=== PATIENT | female | born 1990 | race Hispanic/Latino ===

== ENCOUNTER 2017-01-19 21:47 | Emergency (ER) | payer OTHER ==
[2017-01-19 21:52] VITALS: BP 136/89
[2017-01-19] MEDS ORDERED: Sulfamethoxazole/Trimethoprim 800-160 MG Tab PO ONE (22:07)
[2017-01-19] MEDS ORDERED: Phenazopyridine 95 MG Tab PO ONE (22:07)
--- NOTE | 2017-01-19 22:12 | EDM.PDOC ---
ED HPI GENERAL MEDICAL PROBLEM - General Chief Complaint: Genitourinary Problem Stated Complaint: UTI [id number] Time Seen by Provider: 01/19/17 22:09 Source of Information: Reports: Patient History Limitations: Reports: No Limitations - History of Present Illness INITIAL COMMENTS - FREE TEXT/NARRATIVE: 1 week h/o dysuria, urgency, bladder discomfort. Bladder Pain Score (Numeric/FACES): 8 - Related Data Allergies Allergy/AdvReac Type Severity Reaction Status Date / Time aspirin Allergy Swelling Verified 01/19/17 21:52 tide Allergy Itching Uncoded 01/19/17 21:52 Home Meds: Home Meds Ibuprofen [Advil] 800 mg PO DAILY 01/19/17 [History] Past Medical History Genitourinary History: Reports: UTI, Recurrent Social & Family History - Tobacco Use Smoking Status *Q: Current Every Day Smoker Years of Tobacco use: 10 Packs/Tins Daily: 0.3 Second Hand Smoke Exposure: Yes - Recreational Drug Use Recreational Drug Use: No ED ROS GENERAL - Review of Systems Review Of Systems: ROS reveals no pertinent complaints other than HPI. ED EXAM, RENAL/ - Physical Exam Exam: See Below Exam Limited By: No Limitations General Appearance: Alert, WD/WN, Mild Distress, Other ([place]) Ears: Hearing Grossly Normal Throat/Mouth: Normal Voice, No Airway Compromise Head: Atraumatic Neck: Non-Tender, Full Range of Motion Respiratory/Chest: No Respiratory Distress Cardiovascular: Regular Rate, Rhythm GI/Abdominal: Soft, Tender, Other (suprapubic). No: Distended, Guarding, Rigid , Rebound Back Exam: No: CVA Tenderness (L), CVA Tenderness (R) Neurological: Alert, Oriented, Normal Cognition, Normal Gait, No Motor/Sensory Deficits Psychiatric: Normal Affect, Normal Mood Skin Exam: Warm, Dry Lymphatic: No Adenopathy Course - Vital Signs Last Recorded V/S: Last Vital Signs Temp 36.4 C 01/19/17 21:49 Pulse 78 01/19/17 21:49 Resp 18 01/19/17 21:49 BP 136/89 01/19/17 21:49 Pulse Ox 96 01/19/17 21:49 - Orders/Labs/Meds Orders: Active Orders 24 hr Category Date Time Status UA W/MICROSCOPIC [URIN] Stat Lab 01/19/17 21:56 Results Labs: Laboratory Tests 01/19/17 Range/Units 21:56 Urine Color [place] (YELLOW) Urine Appearance Slightly cloudy (CLEAR) Urine pH 6.0 (5.0-9.0) Ur Specific [place] 1.010 (1.005-1.030) Urine Protein >=300 H (NEGATIVE) Urine Glucose (UA) 250 H (NEGATIVE) Urine Ketones Trace H (NEGATIVE) Urine Occult Blood Small H (NEGATIVE) Urine Nitrite Positive H (NEGATIVE) Urine Bilirubin Small H (NEGATIVE) Urine Urobilinogen >=8.0 H (0.2-1.0) mg/dL Ur Leukocyte Esterase Large H (NEGATIVE) Meds: Medications Discontinued Medications Generic Name Dose Route Start Last Admin Trade Name Freq PRN Reason Stop Dose Admin Phenazopyridine HCl 95 mg 01/19/17 22:07 Urinary Pain Relief PO 01/19/17 22:08 ONETIME ONE Trimethoprim/Sulfamethoxazole 1 tab 01/19/17 22:07 Septra Ds PO 01/19/17 22:08 ONETIME ONE Departure - Departure Time of Disposition: 22:11 Disposition: Home, Self-Care 01 Condition: Good Clinical Impression: UTI, Urinary tract infectious disease - Discharge Information Instructions: Urinary Tract Infection, Adult, [id number] Forms: ED Department Discharge Additional Instructions: 1) rest 2) drink lots of liquids 3) follow up at clinic or recheck as needed rx given; bactrim DS bid x20 pyridium 100mg tid prn x 12 - My Orders Last 24 Hours: My Active Orders 01/19/17 21:56 UA W/MICROSCOPIC [URIN] Stat - Assessment/Plan Last 24 Hours: My Active Orders 01/19/17 21:56 UA W/MICROSCOPIC [URIN] Stat
== END 2017-01-19 22:19 | disposition home or self-care (01) ==
LOC: DL.ED 21:47
DX: N39.0 Urinary tract infection, site not specified (principal); F17.210 Nicotine dependence, cigarettes, uncomplicated; Z88.6 Allergy status to analgesic agent; Z79.1 Long term (current) use of non-steroidal anti-inflammatories (NSAID)
CPT/HCPCS: 81001; 99283; A9270

== ENCOUNTER 2017-05-05 14:01 | Emergency (ER) | payer MEDICAID, OTHER ==
[2017-05-05 14:37] VITALS: BP 126/80
--- NOTE | 2017-05-05 15:02 | EDM.PDOC ---
ED HPI GENERAL MEDICAL PROBLEM - General Chief Complaint: ENT Problem Stated Complaint: [id number] PINK EYE Time Seen by Provider: 05/05/17 14:58 Source of Information: Reports: Patient History Limitations: Reports: No Limitations - History of Present Illness INITIAL COMMENTS - FREE TEXT/NARRATIVE: 26 yo [place] Female c/o right eye irritation w/ matting since yesterday. No Trauma Onset Date: 05/04/17 Onset Time: 12:00 Duration: Day(s): Location: Reports: Face Severity: Moderate Improves with: Reports: None Worsens with: Reports: None Context: Reports: Activity Associated Symptoms: Reports: No Other Symptoms Right Eye Pain Score (Numeric/FACES): 3 - Related Data Allergies Allergy/AdvReac Type Severity Reaction Status Date / Time aspirin Allergy Swelling Verified 01/19/17 21:52 tide Allergy Itching Uncoded 01/19/17 21:52 Home Meds: Home Meds Ibuprofen [Advil] 800 mg PO DAILY 01/19/17 [History] Past Medical History Genitourinary History: Reports: UTI, Recurrent - Past Surgical History GI Surgical History: Reports: Other (See Below) Other GI Surgeries/Procedures: scraping of the uterus Social & Family History - Tobacco Use Smoking Status *Q: Current Every Day Smoker Years of Tobacco use: 10 Packs/Tins Daily: 0.3 Second Hand Smoke Exposure: Yes - Recreational Drug Use Recreational Drug Use: No ED ROS GENERAL - Review of Systems Review Of Systems: See Below Constitutional: Reports: No Symptoms HEENT: Reports: Eye Discharge (right eye), Eye Pain Respiratory: Reports: No Symptoms Cardiovascular: Reports: No Symptoms Endocrine: Reports: No Symptoms GI/Abdominal: Reports: No Symptoms : Reports: No Symptoms Musculoskeletal: Reports: No Symptoms Skin: Reports: No Symptoms Neurological: Reports: No Symptoms Psychiatric: Reports: No Symptoms Hematologic/Lymphatic: Reports: No Symptoms Immunologic: Reports: No Symptoms ED EXAM GENERAL W FULL EYE - Physical Exam Exam: See Below Exam Limited By: No Limitations General Appearance: Alert, No Apparent Distress, Obese Eye Exam: Bilateral Eye: EOMI, PERRL Eyelids: Bilateral: Normal Appearance Conjunctiva & Sclera: Right: Injected Cornea Exam: Bilateral: Normal Appearance Extraocular Movements: Bilateral: Intact Pupils: Normal Accommodation Pupillary Size: Bilateral: 4 mm Pupillary Reaction: Bilateral: Brisk Anterior Chamber: Bilateral: Normal Appearance Posterior Chamber: Bilateral: Normal Funduscopic Ears: Normal External Exam Nose: Normal Inspection Throat/Mouth: Normal Inspection Head: Atraumatic Neck: Normal Inspection Respiratory/Chest: No Respiratory Distress, Lungs Clear Cardiovascular: Normal Peripheral Pulses, Regular Rate, Rhythm GI/Abdominal: Normal Bowel Sounds Back Exam: Normal Inspection Extremities: Normal Inspection Neurological: Alert, Oriented, CN II-XII Intact Psychiatric: Normal Affect Skin Exam: Warm Lymphatic: No Adenopathy Course - Vital Signs Last Recorded V/S: Last Vital Signs Temp 36.6 C 05/05/17 14:36 Pulse 65 05/05/17 14:36 Resp 16 05/05/17 14:36 BP 126/80 05/05/17 14:36 Pulse Ox 99 05/05/17 14:36 Departure - Departure Time of Disposition: 15:01 Disposition: Home, Self-Care 01 Condition: Good Clinical Impression: Conjunctivitis of right eye Qualifiers: Conjunctivitis type: acute Acute conjunctivitis type: bacterial Qualified Code( s): H10.31 - Unspecified acute conjunctivitis, right eye - Discharge Information Additional Instructions: keep right eye clean Use the antibiotic eye drops as directed only and complete: GARAMYCIN Opthalmic Soln. use 2-3 drops to right eye QID F/U w/ PCP
== END 2017-05-05 15:15 | disposition home or self-care (01) ==
LOC: DL.ED 14:01
DX: H10.31 Unspecified acute conjunctivitis, right eye (principal); F17.210 Nicotine dependence, cigarettes, uncomplicated; Z88.6 Allergy status to analgesic agent; Z88.8 Allergy status to other drugs, medicaments and biological substances
CPT/HCPCS: 99282

== ENCOUNTER 2017-05-14 22:33 | Emergency (ER) | payer MEDICAID ==
[2017-05-14 22:50] VITALS: BP 128/70
[2017-05-14] MEDS ORDERED: Ketorolac 30 MG/ML SDV IM ONE (23:10)
--- NOTE | 2017-05-14 23:19 | EDM.PDOC ---
ED HPI GENERAL MEDICAL PROBLEM - General Chief Complaint: Back Pain or Injury Stated Complaint: PULLED A MUSCLE [id number] Time Seen by Provider: 05/14/17 23:05 Source of Information: Reports: Patient History Limitations: Reports: No Limitations - History of Present Illness INITIAL COMMENTS - FREE TEXT/NARRATIVE: patient comes emergency Department today with complaints of left lower back pain that has been going on for the past 3-4 days. She relates that she has been working out quite aggressively physically active and exercising with weights over the weekend and as she was walking up the steps approximately 3 days ago she suddenly developed a sharp shooting stabbing pain that is intermittent in her left lower back and her upper left buttocks. She denies any falls or recent trauma. She has been playing at home for the past 3 days with Tylenol and ibuprofen and no improvement of the pain. Will not stand or sit for very long period of time due to the pain. She denies any numbness or tingling in her lower extremities. She denies any change in her bowel or bladder habits. She denies any flank pain hematuria dysuria or urinary frequency. Lower Back Pain Score (Numeric/FACES): 7 - Related Data Allergies Allergy/AdvReac Type Severity Reaction Status Date / Time aspirin Allergy Swelling Verified 05/14/17 22:45 tide Allergy Itching Uncoded 05/14/17 22:45 Home Meds: Home Meds Ibuprofen [Advil] 800 mg PO DAILY 01/19/17 [History] Past Medical History HEENT History: Reports: None Cardiovascular History: Reports: None Respiratory History: Reports: None Gastrointestinal History: Reports: None Genitourinary History: Reports: UTI, Recurrent MI[employer] TE[employer]ER History: Reports: None Musculoskeletal History: Reports: None Neurological History: Reports: None Psychiatric History: Reports: None Endocrine/Metabolic History: Reports: None Hematologic History: Reports: None Immunologic History: Reports: None Oncologic (Cancer) History: Reports: None Dermatologic History: Reports: None - Past Surgical History GI Surgical History: Reports: Other (See Below) Other GI Surgeries/Procedures: scraping of the uterus Social & Family History - Tobacco Use Smoking Status *Q: Never Smoker Years of Tobacco use: 10 Packs/Tins Daily: 0.3 Second Hand Smoke Exposure: Yes - Caffeine Use Caffeine Use: Reports: Soda, Tea - Recreational Drug Use Recreational Drug Use: No ED ROS GENERAL - Review of Systems Review Of Systems: ROS reveals no pertinent complaints other than HPI. ED EXAM,LOWER BACK PAIN/INJURY - Physical Exam Exam: See Below Text/Narrative:: patient is lying on her right side for positioning of comfort she relates. She is rather uncomfortable when she does attempt to lay on her back and appears to have some muscle spasms with movement. Also of note when I when doing her exam with DTRs and leg raise I did note a rather foul smell coming from the patients pelvic region. After asking about the smell she did tell me that for the past 2- 3 weeks she has had quite foul smelling vaginal discharge. Has not had intercourse for the past 6 months. No dysparunia or increased vaginal discharge. Exam Limited By: No Limitations General Appearance: Alert, WD/WN, Mild Distress Ears: Normal External Exam Nose: Normal Inspection Throat/Mouth: Normal Inspection Head: Atraumatic, Normocephalic Neck: Normal Inspection Respiratory/Chest: No Respiratory Distress, Lungs Clear Cardiovascular: Normal Peripheral Pulses, Regular Rate, Rhythm GI/Abdominal: Normal Bowel Sounds, Soft, Non-Tender, No Organomegaly, No Distention (Female) Exam: Vaginal Discharge (Foul smelling fishy odor that is thin and buenrostro. ), Other (Exam completed with Gunjan SCHREIBRE in the room as well. ). No: Adnexal Tenderness, Cervical Discharge, Cervical Fluid, Cervical Lesions, Cervix Motion Tenderness, Vaginal Lesions, Vaginal Tears Rectal (Female) Exam: Deferred Back Exam: Muscle Spasm (left lower back and the upper buttocks region.), Paraspinal Tenderness, Other (negative straight leg raise. Although does have a spasm in her buttocks with elevation of the leg.). No: CVA Tenderness (L), CVA Tenderness (R), Vertebral Tenderness Extremities: Normal Inspection, Non-Tender, No Pedal Edema, Normal Capillary Refill Neurological: Alert, Normal Mood/Affect, Normal Dorsiflexion, CN II-XII Intact, Normal Plantar Flexion, Normal Reflexes, No Motor/Sensory Deficits, Oriented x 3 DTR - Lower Extremities: 2+: Knee (R), Knee (L), Ankle (R), Ankle (L) Psychiatric: Normal Affect Skin Exam: Warm, Dry, Intact, Normal Color, No Rash Lymphatic: No Adenopathy Course - Vital Signs Last Recorded V/S: Last Vital Signs Temp 35.9 C 05/14/17 22:46 Pulse 62 05/14/17 22:46 Resp 18 05/14/17 22:46 BP 128/70 05/14/17 22:46 Pulse Ox 100 05/14/17 22:46 - Orders/Labs/Meds Orders: Active Orders 24 hr Category Date Time Status CHLAMYDIA AND GONORRHEA BY [facility] Stat Lab 05/14/17 23:21 Received Labs: Laboratory Tests 05/14/17 Range/Units 23:21 Urine Color Yellow (YELLOW) Urine Appearance Turbid (CLEAR) Urine pH 7.0 (5.0-9.0) Ur Specific [place] 1.025 (1.005-1.030) Urine Protein Negative (NEGATIVE) Urine Glucose (UA) Negative (NEGATIVE) Urine Ketones Trace H (NEGATIVE) Urine Occult Blood Negative (NEGATIVE) Urine Nitrite Negative (NEGATIVE) Urine Bilirubin Negative (NEGATIVE) Urine Urobilinogen 1.0 (0.2-1.0) mg/dL Ur Leukocyte Esterase Trace H (NEGATIVE) Urine RBC 0-5 /HPF Urine WBC 5-10 H (0-5/HPF) /HPF Ur Epithelial Cells Many H /HPF Amorphous Sediment Moderate H (0/HPF) /HPF Urine Bacteria Few (0-FEW/HPF) /HPF Urine Mucus Many H /LPF Meds: Medications Discontinued Medications Generic Name Dose Route Start Last Admin Trade Name Freq PRN Reason Stop Dose Admin Ketorolac Tromethamine 30 mg 05/14/17 23:10 05/14/17 23:18 Toradol IM 05/14/17 23:11 30 mg ONETIME ONE Administration Metronidazole 500 mg 05/15/17 00:31 05/15/17 00:36 Metronidazole PO 05/15/17 00:32 500 mg ONETIME ONE Administration Orphenadrine Citrate 60 mg 05/14/17 23:10 05/14/17 23:19 Norflex IM 05/14/17 23:11 60 mg ONETIME ONE Administration - Re-Assessments/Exams Free Text/Narrative Re-Assessment/Exam: 05/14/17 23:23 UA Ketorolac 30mg IM Norflex 60mg IM 05/15/17 00:42 Urinalysis with Clue cells. Pelvic exam wet prep results BV. the patient's pain was much improved on her left lower back after the Toradol and Norflex. She is able to move without difficulty or muscle spasms initiated upon arrival. I discussed the plan for the bacterial vaginosis as well as lower back pain/ muscle spasms. She was covered with this plan and her questions were answered. One dose of oral Flagyl was given prior to discharge. Departure - Departure Time of Disposition: 00:29 Disposition: Home, Self-Care 01 Clinical Impression: Muscle spasm, Bacterial vaginosis Back pain Qualifiers: Back pain location: low back pain Chronicity: acute Back pain laterality: left Sciatica presence: without sciatica Qualified Code(s): M54.5 - Low back pain - Discharge Information Instructions: Muscle Cramps and Spasms, [id number], Bacterial Vaginosis, Easy -to-Read, Back Pain, Adult, [id number] Forms: ED Department Discharge Additional Instructions: Flexeril 10mg by mouth three times a day as needed for muscle spasm. RX given to the patient. Caution sedation. Nabumetone 500mg, by mouth twice a day as needed for back pain. Do not take any other NSAIDS with this medication. Metronidazole, 500mg twice a day for the next 7 days for the vaginal infection. Take till gone no matter what. Return to the ED if new or worsening symptoms. Follow up with primary care provider in the next 4-6 days if not improving sooner if worse. - My Orders Last 24 Hours: My Active Orders 05/14/17 23:21 CHLAMYDIA AND GONORRHEA BY [facility] Stat - Assessment/Plan Last 24 Hours: My Active Orders 05/14/17 23:21 CHLAMYDIA AND GONORRHEA BY [facility] Stat Assessment:: Lower back pain/muscle spasm. Bacterial Vaginosis. Plan: Flexeril 10mg by mouth three times a day as needed for muscle spasm. RX given to the patient. Caution sedation. Nabumetone 500mg, by mouth twice a day as needed for back pain. Do not take any other NSAIDS with this medication. Metronidazole, 500mg twice a day for the next 7 days for the vaginal infection. Take till gone no matter what. Return to the ED if new or worsening symptoms. Follow up with primary care provider in the next 4-6 days if not improving sooner if worse.
[2017-05-15] MEDS ORDERED: metroNIDAZOLE 250 MG Tab PO ONE (00:31)
== END 2017-05-15 00:42 | disposition home or self-care (01) ==
LOC: DL.ED 22:33
DX: M62.830 Muscle spasm of back (principal); N76.0 Acute vaginitis; Z88.6 Allergy status to analgesic agent; Z79.899 Other long term (current) drug therapy
CPT/HCPCS: 81001; 87210; 87491; 87591; 96372; 99283; A9270; J1885; J2360